=== PATIENT | male | born 1995 | race African-American/Black ===

== ENCOUNTER 2016-11-19 13:53 | Emergency (ER) | payer SELFPAY ==
[2016-11-19 14:09] VITALS: BP 127/77
[2016-11-19] MEDS ORDERED: AMOX500C PO (15:06)
--- NOTE | 2016-11-19 15:06 | PHYS DOC ---
Past Medical History Past Medical History: No Pertinent History Past Surgical History: No Surgical History Alcohol Use: Occasionally Drug Use: None Adult General Chief Complaint Chief Complaint: DENTAL PROBLEM HPI HPI Patient is a 21 year old male presents to the emergency department stating that he's been having left lower dental pain for the last week. He denies any fever, chills or any nausea vomiting. He states he does not have a primary doctor or dentist in which she can follow-up with. Patient denies any foul taste in his mouth. He does state that he has pain along the jawline that goes up into his ear area. He also complains of headache. He states his been taken Tylenol and ibuprofen with 1 ibuprofen taken this morning. Review of Systems Review of Systems Constitutional: Denies fever or chills [] Eyes: Denies change in visual acuity, redness, or eye pain [] HENT: Denies nasal congestion or sore throat. Complaint of dental pain Respiratory: Denies cough or shortness of breath [] Cardiovascular: No additional information not addressed in HPI [] GI: Denies abdominal pain, nausea, vomiting, bloody stools or diarrhea [] : Denies dysuria or hematuria [] Musculoskeletal: Denies back pain or joint pain [] Integument: Denies rash or skin lesions [] Neurologic: Denies headache, focal weakness or sensory changes [] Endocrine: Denies polyuria or polydipsia [] Allergies Allergies Allergies Coded Allergies Type Severity Reaction Last Updated Verified No Known Drug Allergies 11/19/16 No Physical Exam Physical Exam Constitutional: Well developed, well nourished, no acute distress, non-toxic appearance. [] HENT: Normocephalic, atraumatic, bilateral external ears normal, oropharynx moist, no oral exudates, nose normal. Bilateral tympanic membranes appear to be normal. Patient with a wisdom tooth appearing to break through the skin on the left lower area. He does also have a white spot further back on the gumline. Patient does have tenderness noted. No drainage or discharge noted. Eyes: PERRLA, EOMI, conjunctiva normal, no discharge. [] Neck: Normal range of motion, no tenderness, supple, no stridor. [] Cardiovascular:Heart rate regular rhythm, no murmur [] Lungs & Thorax: Bilateral breath sounds clear to auscultation [] Skin: Warm, dry, no erythema, no rash. [] Back: No tenderness Extremities: No tenderness, no cyanosis, no clubbing, ROM intact, no edema. [] Neurologic: Alert and oriented X 3, normal motor function, normal sensory function, no focal deficits noted. [] Psychologic: Affect normal, judgement normal, mood normal. [] Current Patient Data Vital Signs Vital Signs Date Time Temp Pulse Resp B/P (MAP) Pulse Ox O2 Delivery O2 Flow Rate FiO2 11/19/16 14:09 98.2 67 18 98 Room Air 98.2 EKG EKG [] Radiology/Procedures Radiology/Procedures [] Course & Med Decision Making Course & Med Decision Making Pertinent Labs and Imaging studies reviewed. (See chart for details) Recommended ibuprofen 800 mg every 8 hours with food stop taking few develop an upset stomach. Patient will be provided with a prescription for amoxicillin which she can take 4 times a day. Patient was provided with a dental list. He' ll be discharged home in stable condition signs symptoms to return back to emergency department as been provided. Patient agrees with discharge instructions, treatment regimens and follow-up recommendations. [] Dragon Disclaimer Dragon Disclaimer This electronic medical record was generated, in whole or in part, using a voice recognition dictation system. Departure Departure Impression: Primary Impression: Dental abscess Disposition: 01 HOME, SELF-CARE Condition: STABLE Patient Instructions: Dental Abscess Additional Instructions: Activity as tolerated. Tylenol) for pain and discomfort. Antibiotics as prescribed. Warm moist packs to the jawline area. Warm salt water mouth rinses 4 times a day and prior to bedtime. Follow-up with a dentist within the next week. Return back to emergency prior signs symptoms of become worse. Scripts Amoxicillin (AMOXICILLIN) 500 Mg Capsule 1 CAP PO QID, #40 CAP Prov: CASTRO YUEN APRN 11/19/16 CASTRO YUEN [employer] Nov 19, 2016 15:06
== END 2016-11-19 15:13 | disposition home or self-care (01) ==
LOC: ER 13:53
DX: K04.7 Periapical abscess without sinus (principal); R51 Headache
CPT/HCPCS: 99283

== ENCOUNTER 2017-09-30 18:52 | Emergency (ER) | payer SELFPAY | END 2017-09-30 20:21 | disposition home or self-care (01) | LOC: ER 20:21 | DX: S63.501A Unspecified sprain of right wrist, initial encounter (principal); W17.89XA Other fall from one level to another, initial encounter; Y93.89 Activity, other specified; Y92.89 Other specified places as the place of occurrence of the external cause; Y99.8 Other external cause status | CPT/HCPCS: 29125; 73110; 99284 ==